=== PATIENT | male | born 1940 | race Caucasian/White ===

== ENCOUNTER 2024-02-22 10:07 | Inpatient (IN) | payer OTHER ==
[~2024-02-22] VITALS: Ht 160 cm; Wt 57.2 kg
[2024-02-22] MEDS ORDERED: methylPREDNISolone SOD SUCC 125 MG/2 ML VL IV ONE (10:45)
[2024-02-22] MEDS: DexAMETHasone SOD PHOS 10MG/1ML VIAL INJ IV ONE (10:54)
[2024-02-22] MEDS: SODIUM CHLORIDE 0.9% 1,000 ML IV ONE (10:54)
[2024-02-22 11:03] LABS: Basophils # (auto) 0 10 ^3/uL (0-0.2); Basophils % (auto) 0.2 % (0.0-2.0); Eosinophils # (auto) 0.1 10 ^3/uL (0-0.8); Eosinophils % (auto) 0.4 % (0.0-7.0); Lymphocytes # (auto) 0.4 10 ^3/uL (0.4-5.4); Lymphocytes % (auto) 2.1 % (10.0-50.0); Mean Corpuscular Hemoglobin 29.6 pg (28.0-32.0); Mean Corpuscular Hgb Conc. 33.4 g/dL (32.0-36.0); Mean Corpuscular Volume 88.5 fL (80.0-100.0); Monocytes # (auto) 1.7 10 ^3/uL (0-1.3); Monocytes % (auto) 9.6 % (0.0-12.0); Neutrophils # (auto) 15.6 10 ^3/uL (1.6-8.6); Neutrophils % (auto) 87.7 % (37.0-80.0); Platelet Count (auto) 196 10^3/uL (140-450); Red Blood Cells 4.74 10^6/uL (4.5-5.90); Red Cell Distribution Width 15.8 % (11.8-14.3); White Blood Cell 17.8 10^3/uL (4.4-10.8)
[2024-02-22 11:15] LABS: Chloride 106 mmol/L (98-107); Potassium 4.4 mmol/L (3.5-5.1); Sodium 137 mmol/L (136-145)
[2024-02-22 11:16] LABS: Anion Gap 7 (5-15); Carbon Dioxide 24 mmol/L (20-31)
[2024-02-22 11:17] LABS: Calcium 9.5 mg/dL (8.7-10.4)
[2024-02-22 11:21] LABS: BUN/Creatinine Ratio 17.1 (10.0-20.0); Blood Urea Nitrogen 28 mg/dL (9-23); Glucose 98 mg/dL (74-106)
[2024-02-22] MEDS: ALBUTEROL SULF 2.5 MG/0.5ML(0.5%) NEB SOLN NEB ONE (11:21)
[2024-02-22] MEDS: IPRATROPIUM BROM 0.5 MG/2.5ML INH SOL NEB ONE (11:21)
[2024-02-22 12:01] LABS: Rapid Influenza A Negative (Negative); Rapid Influenza B Negative (Negative)
[2024-02-22 12:02] LABS: COVID19 ANTIGEN SOFIA FIA NEGATIVE (NEGATIVE)
[2024-02-22] MEDS: FUROSEMIDE 40 MG/4 ML VIAL IV ONE (12:16)
[2024-02-22 13:38] LABS: Base Excess -4.1 mmol/L (-2.0-3.0)
[2024-02-22 13:47] LABS: Urine Bacteria FEW /hpf (None Seen); Urine Blood 1+ /uL (Negative); Urine Protein, UAD TRACE (Negative); Urine Specific Gravity 1.011 (1.001-1.035); Urine Urobilinogen Normal (Negative); Urine WBC 134 /hpf (0 - 3); Urine pH 5.5 (5.0-9.0)
[2024-02-22] MEDS: cefTRIAXone 1GM/50ML D5W 50 ML IV ONE (13:47)
[2024-02-22 13:48] LABS: Urine Clarity Cloudy (Clear); Urine Color Light-Yellow (Yellow)
[2024-02-22 13:56] VITALS: PULSE 75; RESP 21; O2SAT 93
[2024-02-22 19:30] VITALS: PULSE 69; RESP 16; O2SAT 96
[2024-02-22] MEDS ORDERED: MORPHINE SULFATE INJ 2 MG/ml SYRG IV PRN (20:15)
[2024-02-22] MEDS ORDERED: ONDANSETRON HCL 4 MG/2 ML VIAL IV PRN (20:15)
[2024-02-22] MEDS ORDERED: HYDROcodone-ACET 5/325MG TAB PO PRN (20:15)
[2024-02-22] MEDS ORDERED: ACETAMINOPHEN 325 MG TAB PO PRN (20:15)
[2024-02-22 20:43] VITALS: O2SAT 95
[2024-02-22 20:44] VITALS: BP 111/47; PULSE 66; RESP 15; TEMP 97.8; O2SAT 95
[2024-02-22 21:14] VITALS: BP 116/61; PULSE 65; RESP 20; RESP 22; TEMP 97.8; O2SAT 96
[2024-02-22] MEDS ORDERED: PNEUMOCOCCAL VACC POLYS 25 MCG/0.5 ML VIAL IM ONE (22:00)
[2024-02-22] MEDS: PRAVASTATIN SODIUM 20 MG TAB PO SCH (22:15)
[2024-02-22] MEDS: GABAPENTIN 400 MG CAP PO SCH (22:15)
[2024-02-22] MEDS: TERAZOSIN HCL 5 MG CAP PO SCH (22:15)
[2024-02-22] MEDS: CARVEDILOL 12.5 MG TAB PO SCH (22:16)
[2024-02-22] MEDS ORDERED: LOS25T PO (22:43)
[2024-02-22] MEDS ORDERED: CLOP75TA70 PO (22:43)
[2024-02-22] MEDS ORDERED: GABA-1251 PO (22:43)
[2024-02-22] MEDS ORDERED: PRAV20TA3 PO (22:43)
[2024-02-22] MEDS ORDERED: CARV25TA55 PO (22:43)
[2024-02-22] MEDS ORDERED: TERA10CA19 PO (22:43)
[2024-02-22] MEDS ORDERED: FURO20TA4 PO (22:43)
[2024-02-23] VITALS (12 sets, daily range): BP systolic 100–108; BP diastolic 34–61; PULSE 55–65; RESP 16–20; TEMP 97.6–98.3; O2SAT 93–99
[2024-02-23 06:28] LABS: Alanine Aminotransferase 11 U/L (7-40); Alkaline Phosphatase 60 U/L (46-116); Anion Gap 9 (5-15); Aspartate Aminotransferase 13 U/L (13-40); BUN/Creatinine Ratio 20.6 (10.0-20.0); Blood Urea Nitrogen 33 mg/dL (9-23); Calcium 9.6 mg/dL (8.7-10.4); Carbon Dioxide 25 mmol/L (20-31); Chloride 105 mmol/L (98-107); Glucose 137 mg/dL (74-106); Potassium 4.1 mmol/L (3.5-5.1); Sodium 139 mmol/L (136-145)
[2024-02-23 06:29] LABS: Albumin 4.1 g/dL (3.2-4.8)
[2024-02-23 06:30] LABS: Bilirubin, Total 0.4 mg/dL (0.2-1.0)
[2024-02-23 06:48] LABS: Basophils # (auto) 0 10 ^3/uL (0-0.2); Eosinophils # (auto) 0 10 ^3/uL (0-0.8); Hematocrit 40.9 % (41.0-53.0); Lymphocytes # (auto) 0.5 10 ^3/uL (0.4-5.4); Lymphocytes % (auto) 3.6 % (10.0-50.0); Mean Corpuscular Hgb Conc. 34.2 g/dL (32.0-36.0); Mean Corpuscular Volume 87.8 fL (80.0-100.0); Monocytes # (auto) 0.7 10 ^3/uL (0-1.3); Monocytes % (auto) 5.2 % (0.0-12.0); Neutrophils % (auto) 91.2 % (37.0-80.0); Nucleated Red Blood Cells % 0.1 %; Platelet Count (auto) 203 10^3/uL (140-450); Red Blood Cells 4.66 10^6/uL (4.5-5.90); White Blood Cell 13.1 10^3/uL (4.4-10.8)
[2024-02-23] MEDS: ALBUTEROL SULF 2.5 MG/0.5ML(0.5%) NEB SOLN NEB SCH (07:34)
[2024-02-23] MEDS: IPRATROPIUM BROM 0.5 MG/2.5ML INH SOL NEB SCH (07:36)
[2024-02-23] MEDS: predniSONE 20 MG TAB PO SCH (09:12)
[2024-02-23] MEDS: AZITHROMYCIN 500MG/ 250ML 250 ML IV SCH (09:12)
[2024-02-23] MEDS: LOSARTAN POTASSIUM 25 MG TAB PO SCH (09:13)
[2024-02-23] MEDS: FUROSEMIDE 40 MG TAB PO SCH (09:14)
[2024-02-23] MEDS: ENOXAPARIN SOD 40 MG/0.4 ML SYRINGE SC SCH (09:15)
[2024-02-23] MEDS: CLOPIDOGREL BISULFATE 75 MG TAB PO SCH (09:15)
[2024-02-23 13:02] LABS: Urine Bacteria FEW /hpf (None Seen); Urine Blood Negative /uL (Negative); Urine Clarity Clear (Clear); Urine Color Light-Yellow (Yellow); Urine Protein, UAD Negative (Negative); Urine Specific Gravity 1.011 (1.001-1.035); Urine Urobilinogen Normal (Negative); Urine WBC 17 /hpf (0 - 3); Urine pH 5.5 (5.0-9.0)
[2024-02-23] MEDS: guaiFENesin-DM 100/10mg/5ml SYR PO PRN (21:52)
[2024-02-24] VITALS (13 sets, daily range): BP systolic 111–130; BP diastolic 46–72; PULSE 54–84; RESP 14–20; TEMP 97.7–98.6; O2SAT 91–100
[2024-02-24 07:13] LABS: Basophils # (auto) 0 10 ^3/uL (0-0.2); Basophils % (auto) 0.1 % (0.0-2.0); Eosinophils # (auto) 0 10 ^3/uL (0-0.8); Hematocrit 41.3 % (41.0-53.0); Hemoglobin 13.8 g/dL (13.5-17.5); Lymphocytes # (auto) 0.6 10 ^3/uL (0.4-5.4); Mean Corpuscular Hemoglobin 29.4 pg (28.0-32.0); Mean Corpuscular Hgb Conc. 33.4 g/dL (32.0-36.0); Mean Corpuscular Volume 87.9 fL (80.0-100.0); Monocytes # (auto) 0.9 10 ^3/uL (0-1.3); Monocytes % (auto) 6.5 % (0.0-12.0); Neutrophils # (auto) 12.4 10 ^3/uL (1.6-8.6); Neutrophils % (auto) 89.4 % (37.0-80.0); Nucleated Red Blood Cells % 0.1 %; Platelet Count (auto) 211 10^3/uL (140-450); Red Cell Distribution Width 16.1 % (11.8-14.3); White Blood Cell 13.8 10^3/uL (4.4-10.8)
[2024-02-24 07:26] LABS: Calcium 9.6 mg/dL (8.7-10.4); Chloride 106 mmol/L (98-107); Potassium 4.3 mmol/L (3.5-5.1); Sodium 138 mmol/L (136-145)
[2024-02-24 07:27] LABS: Anion Gap 7 (5-15); Carbon Dioxide 25 mmol/L (20-31)
[2024-02-24 07:33] LABS: BUN/Creatinine Ratio 28.8 (10.0-20.0); Blood Urea Nitrogen 40 mg/dL (9-23); Glucose 128 mg/dL (74-106); Magnesium 2.6 mg/dL (1.6-2.6)
[2024-02-24 07:35] LABS: Phosphorus 3.9 mg/dL (2.4-5.1)
[2024-02-24] MEDS: ENOXAPARIN SOD 40 MG/0.4 ML SYRINGE SC SCH (08:56)
[2024-02-24] MEDS: FAMOTIDINE (10MG/ML) 2ML VL IV SCH (08:56)
[2024-02-24] MEDS: cefTRIAXone 1GM/50ML D5W 50 ML IV ONE (13:45)
[2024-02-24] MEDS: CARVEDILOL 12.5 MG TAB PO SCH (21:44)
[2024-02-25] VITALS (10 sets, daily range): BP systolic 113–129; BP diastolic 53–64; PULSE 52–81; RESP 14–19; TEMP 97.5–98.3; O2SAT 92–99
[2024-02-25 06:09] LABS: Basophils # (auto) 0 10 ^3/uL (0-0.2); Eosinophils # (auto) 0 10 ^3/uL (0-0.8); Hematocrit 41.4 % (41.0-53.0); Lymphocytes # (auto) 0.6 10 ^3/uL (0.4-5.4); Lymphocytes % (auto) 5.7 % (10.0-50.0); Mean Corpuscular Hemoglobin 29.7 pg (28.0-32.0); Mean Corpuscular Hgb Conc. 33.9 g/dL (32.0-36.0); Mean Corpuscular Volume 87.7 fL (80.0-100.0); Monocytes # (auto) 0.7 10 ^3/uL (0-1.3); Monocytes % (auto) 7.3 % (0.0-12.0); Neutrophils # (auto) 8.6 10 ^3/uL (1.6-8.6); Nucleated Red Blood Cells % 0.1 %; Platelet Count (auto) 207 10^3/uL (140-450); Red Blood Cells 4.72 10^6/uL (4.5-5.90); Red Cell Distribution Width 15.9 % (11.8-14.3); White Blood Cell 9.9 10^3/uL (4.4-10.8)
[2024-02-25 06:32] LABS: Chloride 106 mmol/L (98-107); Potassium 4.1 mmol/L (3.5-5.1); Sodium 138 mmol/L (136-145)
[2024-02-25 06:33] LABS: Anion Gap 5 (5-15); Calcium 9.7 mg/dL (8.7-10.4); Carbon Dioxide 27 mmol/L (20-31)
[2024-02-25 06:38] LABS: BUN/Creatinine Ratio 24.8 (10.0-20.0); Blood Urea Nitrogen 37 mg/dL (9-23); Glucose 125 mg/dL (74-106)
[2024-02-25] MEDS: cefTRIAXone 1GM/50ML D5W 50 ML IV SCH (08:25)
[2024-02-25] MEDS ORDERED: DOXY100C79 PO (13:59)
[2024-02-25] MEDS ORDERED: DEXT1SYP9 PO (14:31)
== END 2024-02-25 16:39 | disposition home or self-care (01) | DRG 871 ==
LOC: ER 10:07 → EDBD 10:07 → OVERFLOW 20:24 → WEST WING 20:24
PROVIDERS: ADMIT Student in an Organized Health Care Education/Training Program; ATTEND Student in an Organized Health Care Education/Training Program
DX: A41.9 Sepsis, unspecified organism (principal); J18.9 Pneumonia, unspecified organism; N17.0 Acute kidney failure with tubular necrosis; J96.21 Acute and chronic respiratory failure with hypoxia; J44.1 Chronic obstructive pulmonary disease with (acute) exacerbation; I50.22 Chronic systolic (congestive) heart failure; J44.0 Chronic obstructive pulmonary disease with (acute) lower respiratory infection; Z20.822 Contact with and (suspected) exposure to COVID-19; E78.5 Hyperlipidemia, unspecified; N40.0 Benign prostatic hyperplasia without lower urinary tract symptoms; G62.9 Polyneuropathy, unspecified; E66.9 Obesity, unspecified; I11.0 Hypertensive heart disease with heart failure; I25.10 Atherosclerotic heart disease of native coronary artery without angina pectoris; K44.9 Diaphragmatic hernia without obstruction or gangrene; J98.4 Other disorders of lung; B34.9 Viral infection, unspecified; R82.71 Bacteriuria; Z92.3 Personal history of irradiation; Z85.118 Personal history of other malignant neoplasm of bronchus and lung; Z88.0 Allergy status to penicillin; Z82.3 Family history of stroke; Z79.899 Other long term (current) drug therapy; Z68.30 Body mass index [BMI] 30.0-30.9, adult
CPT/HCPCS: 36415; 36600; 71045; 71250; 80048; 80053; 81001; 82805; 83735; 83880; 84100; 84484; 85025; 87426; 87804; 94640; G0378; J1100; J3490

== ENCOUNTER 2025-04-13 16:37 | Emergency (ER) | payer MEDICARE, OTHER ==
[~2025-04-13] VITALS: Ht 165.1 cm; Wt 75.0 kg
[~2025-04-13 16:37] MED LIST: CARV25TA55 PO; CLOP75TA70 PO; DEXT1SYP9 PO; DOXY100C79 PO; FURO20TA4 PO; GABA-1251 PO; LOS25T PO; PRAV20TA3 PO; TERA10CA19 PO
--- NOTE | 2025-04-13 17:48 | ED.PDOC ---
HPI (NEURO) HPI Comments This is a 85 year old male presenting to the ED with chief complaint of right leg numbness. Patient reports that he suddenly began to experience right leg weakness and numbness for the past 2 days. Patient relays that it occurred while walking with his leg giving out. Patient states he fell prior to coming into the ED due to being unable to bear weight. Patient denies any injury, dizziness, headache, chest pain, SOB, or fever. Chief Complaint: Lower Extremity Time Seen by MD: 17:48 Reviewed Notes: Nurses Notes, Medications, Allergies Information Source: Patient, Spouse Mode of Arrival: Wheelchair Severity: Moderate Dizziness/Weakness Severity: Unable to do activities Timing: Days Duration: Since onset Prehospital treatment: None Weakness Location: (R) Leg Numbness Location: (R) Leg Onset: At rest Circumstances: Spontaneous Symptoms: Weakness, Numbness Associated Signs and Symptoms: Weakness, Numbness Past Medical History PAST MEDICAL HISTORY: COPD, High Lipids, HTN Surgical History: Denies all surgeries Family History Family History: Reviewed,noncontributory to illness Social History Smoker: Non-Smoker Alcohol: Denies ETOH Use Drugs: Denies Drug Use Lives In: Home Constitutional: denies: chills, diaphoresis, fatigue, fever, malaise, sweats, weakness, others EENTM: denies: blurred vision, double vision, ear bleeding, ear discharge, ear drainage, ear pain, ear ringing, eye pain, eye redness, hearing loss, mouth pain, mouth swelling, nasal discharge, nose bleeding, nose congestion, nose pain, photophobia, tearing, throat pain, throat swelling, voice changes, others Respiratory: denies: cough, hemoptysis, orthopnea, SOB at rest, shortness of breath, SOB with excertion, stridor, wheezing, others Cardiovascular: denies: chest pain, dizzy spells, diaphoresis, Dyspnea on exertion, edema, irregular heart beat, left arm pain, lightheadedness, palp itations, PND, syncope, others Gastrointestinal: denies: abdomen distended, abdominal pain, blood streaked bowels, constipated, diarrhea, dysphagia, difficulty swallowing, hematemesis, melena, nausea, poor appetite, poor fluid intake, rectal bleeding, rectal pain, vomiting, others Genitourinary: denies: burning, dysuria, flank pain, frequency, hematuria, incontinence, penile discharge, penile sore, pain, testicle pain, testicle swelling, urgency, others Neurological: reports: numbness, weakness; denies: dizziness, fainting, he adache, left sided numbness, left sided weakness, paresthesia, pre-existing deficit, right sided numbness, right sided weakness, seizure, speech problems, tingling, tremors, others Musculoskeletal: denies: back pain, gout, joint pain, joint swelling, muscle pain, muscle stiffness, neck pain, others Integumetry: denies: bruises, change in color, change in hair/nails, dryness, laceration, lesions, lumps, rash, wounds, others Allergic/Immunocompromised: denies: Difficulty Healing, Frequent Infections, Hives, Itching, others Hematologic/Lymphatic: denies: anemia, blood clots, easy bleeding, easy bruising, swollen glands, others Endocrine: denies: excessive hunger, excessive sweating, excessive thirst, excessive urination, flushing, intolerance to cold, intolerance to heat, unexpl ained weight gain, unexplained weight loss, others Psychiatric: denies: anxiety, bipolar disorder, depression, hopeless, panic disorder, schizophrenia, sleepless, suicidal, others All Other Systems: Reviewed and Negative Physical Exam General Appearance: No Apparent Distress, Normal HEENT: Normal ENT Inspection, Pharynx Normal, TMs Normal Neck: Full Range of Motion, Non-Tender, Normal, Normal Inspection Respiratory: Chest Non-Tender, Lungs Clear, No Accessory Muscle Use, No Respiratory Distress, Normal Breath Sounds Cardiovascular: No Edema, No JVD, No Murmur, No Gallop, Normal Peripheral Pulses, Regular Rate/Rhythm Breast Exam: Deferred Gastrointestinal: No Organomegaly, Non Tender, No Pulsatile Mass, Normal Bowel Sounds, Soft Genitalia: Deferred Pelvic: Deferred Rectal: Deferred Extremities: No calf tenderness, Normal capillary refill, Normal inspection, Normal range of motion, Non-tender, No pedal edema Musculoskeletal : Apperance: Normal Neurologic: Alert, craft superintendent II-XII nml as Tested, Normal Affect, Normal Mood, No Sensory Deficits, Other (Decreased strength to right lower extremity) Cerebellar Function: Normal Reflexes: Normal Skin: Dry, Normal Color, Warm Lymphatic: No Adenopathy Was a procedure done? Was a procedure done?: No Differential Diagnosis (SZ) Seizure: N/A CVA: CVA, TIA General Weakness: Dehydration Headache: N/A X-Ray, Labs, Meds, VS Vital Signs Date Time Temp Pulse Resp B/P (MAP) Pulse Ox O2 Delivery O2 Flow Rate FiO2 04/13/25 18:53 98.2 65 18 157/71 (99) 97 98.2 04/13/25 16:41 98.3 73 15 149/71 97 98.3 Lab Test 04/13/25 18:20 Range/Units White Blood Count 7.6 4.4-10.8 10^3/uL Red Blood Count 4.84 4.5-5.90 10^6/uL Hemoglobin 14.5 13.5-17.5 g/dL Hematocrit 43.0 41.0-53.0 % Mean Corpuscular Volume 88.9 80.0-100.0 fL Mean Corpuscular Hemoglobin 30.0 28.0-32.0 pg Mean Corpuscular Hemoglobin Concent 33.7 32.0-36.0 g/dL Red Cell Distribution Width 16.4 H 11.8-14.3 % Platelet Count 197 140-450 10^3/uL Mean Platelet Volume 7.4 6.9-10.8 fL Neutrophils (%) (Auto) 76.6 37.0-80.0 % Lymphocytes (%) (Auto) 11.3 10.0-50.0 % Monocytes (%) (Auto) 9.4 0.0-12.0 % Eosinophils (%) (Auto) 1.9 0.0-7.0 % Basophils (%) (Auto) 0.8 0.0-2.0 % Neutrophils # (Auto) 5.9 1.6-8.6 10 ^3/uL Lymphocytes # (Auto) 0.9 0.4-5.4 10 ^3/uL Monocytes # (Auto) 0.7 0-1.3 10 ^3/uL Eosinophils # (Auto) 0.1 0-0.8 10 ^3/uL Basophils # (Auto) 0.1 0-0.2 10 ^3/uL Nucleated Red Blood Cells 0.0 % Sodium Level 143 136-145 mmol/L Potassium Level 4.3 3.5-5.1 mmol/L Chloride Level 104 98-107 mmol/L Carbon Dioxide Level 31 20-31 mmol/L Anion Gap 8 5-15 Blood Urea Nitrogen 25 H 9-23 mg/dL Creatinine 1.43 H 0.700-1.30 mg/dL Glomerular Filtration Rate Calc 49 >90 mL/min BUN/Creatinine Ratio 17.5 10.0-20.0 Serum Glucose 88 74-106 mg/dL Calcium Level 9.4 8.7-10.4 mg/dL Troponin I High Sensitivity 28 </=54 ng/L Time of 1ST Reevaluation: 18:45 Reevaluation 1ST: Unchanged Patient Education/Counseling: Diagnosis, Treatment Family Education/Counseling: Diagnosis, Treatment Departure 1 Departure Time of Disposition: 19:02 (Patient presents with right leg weakness and inability to bear weight on right leg. Initial CT scan of the brain and chest x-ray and hip x-ray are benign. Initial labs are benign. We will admit patient for workup possible occult hip injury versus possible CVA.) Impression: Primary Impression: Right leg weakness Additional Impressions: Inability to ambulate due to hip Right hip pain Disposition: ADMITTED INPATIENT Admit to: Med Surg Condition: Guarded Critical Care Note Critical Care Time?: No Stability Stability form required: No Heart Score Heart Score: Heart Score Response (Comments) Value History N/A 0 EKG N/A 0 Age N/A 0 Risk Factors N/A 0 Troponin N/A 0 Total 0 I personally scribed for MAXIMILIANO MOSES MD ([email or web address]) on 04/13/25 at 17:48. Electronically submitted by Samson Harris ([email or web address]). MAXIMILIANO MOSES MD Apr 13, 2025 17:48
--- NOTE | 2025-04-13 18:15 | DVH ---
EXAM: CT HEAD WITHOUT CONTRAST INDICATION: right hip weakness TECHNIQUE: CT images of the head were obtained without administration of IV contrast. CT scans at this facility use dose modulation, iterative reconstruction, and/or weight based dosing when appropriate to reduce radiation dose to as low as reasonably achievable. COMPARISON: None FINDINGS: PARENCHYMA: No acute hemorrhage. There is no mass effect, midline shift, or herniation. There is preservation of the colon white differentiation. Mild scattered hypoattenuation along the periventricular, centrum semiovale, and deep white matter tracts, which are nonspecific however statistically most likely represent chronic microvascular ischemic change. VENTRICLES: No hydrocephalus. EXTRA-AXIAL SPACES: No extra-axial fluid collections. OTHER: The bony structures are intact. Visualized portions of the paranasal sinuses and mastoid air cells are clear. IMPRESSION: 1. No CT evidence of an acute intracranial abnormality.
--- NOTE | 2025-04-13 18:24 | DVH ---
EXAM: XY R HIP COMPLETE XRAY INDICATION: right hip weakness TECHNIQUE: Frontal radiographs of the hip and pelvis and frog-leg lateral view right hip COMPARISON: None FINDINGS/IMPRESSION: No radiographic evidence of an acute fracture, osseous malalignment, or aggressive osseous lesion. Mild bilateral superior hip joint space loss with bilateral femoral head /neck osseous bumps. Possible radiopaque foreign body located within the cecum in the right lower quadrant versus external to the body. Appearance of a small screw. Symmetric sacroiliac joints. Normal pubic symphyseal joint.
--- NOTE | 2025-04-13 18:30 | DVH ---
EXAM: XY CHEST PORTABLE HISTORY: right hip weakness TECHNIQUE: 1 view of the chest COMPARISON: CT CHEST WITHOUT CONTRAST on DOS: 02/25/24 FINDINGS/IMPRESSION: LUNGS: No pleural effusion, consolidation, or pneumothorax. atelectasis in the left lung base. MEDIASTINUM: Unremarkable. BONES: No acute osseous abnormality. OTHER: None.
[2025-04-13 18:32] LABS: Hematocrit 43.0 % (41.0-53.0); Hemoglobin 14.5 g/dL (13.5-17.5); Mean Corpuscular Hemoglobin 30.0 pg (28.0-32.0); Mean Corpuscular Volume 88.9 fL (80.0-100.0); Nucleated Red Blood Cells % 0.0 %
[2025-04-13 18:37] LABS: Chloride 104 mmol/L (98-107); Potassium 4.3 mmol/L (3.5-5.1); Sodium 143 mmol/L (136-145)
[2025-04-13 18:38] LABS: Anion Gap 8 (5-15); Calcium 9.4 mg/dL (8.7-10.4)
[2025-04-13 18:43] LABS: Glucose 88 mg/dL (74-106)
[2025-04-13 18:46] LABS: Blood Urea Nitrogen 25 mg/dL (9-23)
[2025-04-13 18:47] LABS: BUN/Creatinine Ratio 17.5 (10.0-20.0); Carbon Dioxide 31 mmol/L (20-31)
[2025-04-13 20:03] LABS: Urine Budding Yeast MODERATE /hpf (None Seen); Urine Protein, UAD Negative (Negative); Urine WBC Clumps PRESENT /hpf (None Seen)
[2025-04-13 21:48] VITALS: BP 145/53; PULSE 60; RESP 19; TEMP 98.9; O2SAT 95
[2025-04-13] MEDS: SULFAMETHOX W/TRIMETH(800/160MG) DS TAB PO ONE (22:02)
== END 2025-04-13 21:22 | disposition short-term general hospital (02) ==
LOC: ER 16:37
DX: M62.81 Muscle weakness (generalized) (principal); M25.551 Pain in right hip; I10 Essential (primary) hypertension; J44.9 Chronic obstructive pulmonary disease, unspecified; Z79.899 Other long term (current) drug therapy
CPT/HCPCS: 36415; 70450; 71045; 73502; 80048; 81001; 84484; 85025; 99285; J0696